=== PATIENT | male | born 1960 | race Caucasian/White ===

== ENCOUNTER 2024-07-28 06:27 | Day surgery (SDC) | payer OTHER, SELFPAY ==
[2024-07-28 08:09] LABS: Glucose - Point of Care 87 mg/dl (70-99)
== END 2024-07-28 10:02 | disposition home or self-care (01) ==
LOC: GI 06:27
PROVIDERS: ATTENDING PHYSICIAN Internal Medicine
DX: Z12.11 Encounter for screening for malignant neoplasm of colon (principal); K57.30 Diverticulosis of large intestine without perforation or abscess without bleeding; Z86.0101 Personal history of adenomatous and serrated colon polyps
CPT/HCPCS: G0105; 82962

== ENCOUNTER 2024-08-17 06:28 | Day surgery (SDC) | payer OTHER, SELFPAY ==
[2024-08-17] VITALS (7 sets, daily range): BP systolic 104–155; BP diastolic 51–78; BMI 30.7
[2024-08-17] MEDS: TYLENOL 1000 MG PO (15:21)
[2024-08-17] MEDS: CELEBREX 200 MG PO (15:21)
[2024-08-17 15:33] LABS: Glucose - Point of Care 108 mg/dl (70-99)
--- NOTE | 2024-08-17 17:12 | OR.RPT ---
Operative Report
Operative Report
DATE OF OPERATION: 08/17/2024
SURGEON: Gary Mosqueda MD
PREOPERATIVE DIAGNOSIS: Anal lesion
POSTOPERATIVE DIAGNOSIS: Anal lesion
OPERATION: Exam under anesthesia, multiple biopsies with Humphrey-Cut device and incisional biopsy of anal lesion, bilateral pudendal nerve block
ASSISTANTS:
1. None
ANESTHESIA: Sedation with LMA and local
ESTIMATED BLOOD LOSS: 5 mL
FINDINGS:
1. Anal lesion seen at the anal verge in the posterior midline with a pedunculated tip extending above the skin; remainder of lesion palpable under the skin and extending into the distal anal canal, measuring about 1 cm x 1 cm in size
2. Incidental findings: Healed midline fissure with thin layer of epithelium covering the internal sphincter muscle, evidence of chronic scar along the edges as well as an anal papilla; small to moderate internal hemorrhoids in the RAQ, LAQ and RPQ
without irritation or bleeding
SPECIMENS:
1. Deep posterior anal biopsy (Humphrey-Cut)
2. Superficial posterior anal biopsy (incisional)
DRAINS: None
COMPLICATIONS: None
INDICATIONS: The patient is a 63-year-old male who was found to have a small perianal lesion during colonoscopy. He is largely asymptomatic and admitted that he felt this lesion for the last several months. In the office, a posterior midline
lesion was noted with a small pedunculated area above the layer of the skin, but the majority of which was felt under the skin extending into the anal canal. Therefore, the patient was recommended to have surgery to assess the relationship to the
nearby structures as well as to perform biopsies. If there was a clear plane between the mass and the sphincter complex, I would consider excision. However, if there is no clear plane, I would focus on obtaining biopsies. The operation was
discussed with the patient and spouse in detail, including the risks, benefits and alternatives. Risks described included, but not limited to bleeding, infection, urinary retention, damage to nearby structures such as the anal sphincter, fecal
incontinence, insufficient biopsy results, missed lesion, positive margins if excision is performed and anesthetic risks. The patient understood and agreed to proceed. The consent was signed and placed in the chart.
PROCEDURE IN DETAIL: The patient was taken to the operating room. Sequential compression devices were placed bilaterally. The patient was placed on the operating table in supine position. Sedation was commenced without complication and the patient
was intubated with an LMA. The patient was placed in lithotomy position with arms secured to the arm boards and pressure points padded. The buttocks were taped apart. The perineum was shaved, prepped and draped in the usual fashion. A time-out
was performed verifying the correct patient, procedure, operative site, positioning, and special equipment.
Local anesthesia used was a mixture of 30 mL of 0.25% Marcaine with epinephrine, 30 mL of 1% lidocaine plain and 0.6 mg of dexamethasone. 40 mL was injected perianally at the beginning of the case. The anorectal exam was performed assessing all
four quadrants of the anal canal using [place] retractors in progressively increasing size. The anal mass was seen in the posterior midline with a portion of the lesion extending above the level of the skin. This appeared to be a 5 mm
(width) x 3 mm (height) semi-pedunculated lesion. However, on palpation, this was only a portion of a larger mass that was felt under the skin and extending into the anal canal. There was no palpable plane between the sphincter complex and this
lesion. Additionally, along the posterior midline within the anal canal, there was the appearance of a healed anal fissure with a thin layer of epithelium covering the internal sphincter muscle and chronic scar along the margins, as well as an
adjacent anal papilla. There was no palpable lesions in the proximal aspect of the anal canal. There were small to moderate internal hemorrhoids in the right anterior, left anterior and right posterior position, without any irritation or bleeding.
These were left in place. The anal canal measured about 3 to 4 cm in length.
I performed Humphrey-Cut biopsies, grasping the lesion between my fingers to guide the biopsy device into the mass. The mass was about 1 cm x 1 cm in size. I passed the biopsy device 4 times and the specimens appeared adequate. Hemostasis was assured
with pressure. I performed an incisional biopsy on the superficial portion using a forceps and Metzenbaum scissors. This was sent for pathology. Hemostasis was assured with electrocautery.
The remaining 20 mL of local were injected. 5 mL was injected bilaterally for a pudendal nerve block. 10 mL was injected around the surgical site and perianally. Hemostasis was reassessed once more using the small [place] and was confirmed.
At this point, the procedure was complete. All needle, sponge and instrument counts were correct. The patient tolerated the procedure well and was transferred to the recovery room in stable condition with gauze dressing in place secured with silk
tape.
DICTATED BY: Gary Mosqueda MD
--- NOTE | 2024-08-17 17:12 | W.IMMPOSTOP ---
Surgical Immed Post Op Note
-
Primary Surgeon: aGry Mosqueda MD
Assisting Surgeon: None
Pre-op Diagnosis: Anal lesion
Post-op Diagnosis: Anal lesion
Procedure Performed: Exam under anesthesia, biopsy of anal lesion with Humphrey�cut device, incisional biopsy of anal lesion, bilateral pudendal nerve block
Anesthesia Type: Sedation/LMA with local
Specimen / Cultures: Deep anal biopsy (Humphrey�cut), superficial anal biopsy (incisional)
Estimated Blood Loss: 5 mL
Complications: None
Operative Findings: Anal lesion noted in the posterior midline with superficial aspect at 5 mm from the anal verge, performed incisional biopsy; palpable lesion extending under the skin and into the anal canal, no clear margin between the lesion and
the sphincter muscle, lesion measuring about 1 cm x 1 cm in size, performed Humphrey-Cut biopsy x 4
[2024-08-17 17:28] LABS: Glucose - Point of Care 114 mg/dl (70-99)
== END 2024-08-17 18:40 | disposition home or self-care (01) ==
LOC: SDS 06:28
PROVIDERS: ATTENDING PHYSICIAN Surgery
DX: K62.9 Disease of anus and rectum, unspecified (principal)
CPT/HCPCS: 45100; 88305; 82962